=== PATIENT | female | born 1970 | race Caucasian/White ===

== ENCOUNTER → 2017-05-22 | Outpatient (CLI) | payer OTHER ==
--- NOTE | 2017-05-22 11:51 | RAD ---
HISTORY: Back pain. No history trauma given. Study: AP and lateral thoracic spine Comparison: None Findings: The pedicles are intact. Mild lateral spurring is present at several levels. Mild anterior spurring is present at several levels. Very minimal disc space narrowing is noted in the mid thoracic spine. No acute bony abnormalities are identified. IMPRESSION: 1. Thoracic spondylosis as described above. 2. No acute bony abnormalities are identified. Reported By:
--- NOTE | 2017-05-22 11:53 | RAD ---
HISTORY: Low back pain. No history trauma given. Study: AP and lateral lumbar spine Comparison: None Findings: Five lumbar type vertebra present. Wide laminectomy has been performed at L3 and L4 and what appears to be partial laminotomy at L5. Bilateral pedicle screws are present at L3, L4 and L5. Spinal stab ilization rods are present at these levels. Intervertebral disc fusion as been performed at L3/L4 an d L4/L5. Minimal disc space narrowing is noted at L5/S1 and L4/L5. A vascular stent is present. No acute bony abnormalities are identified. IMPRESSION: 1. Lumbar spondylosis and postoperative changes as described above. 2. Vascular stent. Reported By:
== END | disposition home or self-care (01) | DRG 816 ==
LOC: LAB 08:13
PROVIDERS: ATTEND Nurse Practitioner Family
DX: D75.89 Other specified diseases of blood and blood-forming organs (principal); M54.6 Pain in thoracic spine; M54.41 Lumbago with sciatica, right side; M47.894 Other spondylosis, thoracic region
CPT/HCPCS: 36415; 72072; 72100; 82164; 85652; 86140

== ENCOUNTER → 2017-07-12 | Outpatient (CLI) | payer OTHER ==
--- NOTE | 2017-07-12 12:12 | CT ---
Indication: Nasal congestion. Exam: CT scan of sinuses. Technique: Axial spiral images were obtained from the level above the frontal sinuses through the max illa and reconstructed at 2 mm intervals with coronal and sagittal multiplanar reconstructions. Autom ated does control was utilized. Findings: The frontal sinuses are clear. There is mild mucosal thickening throughout the ethmoid and maxillary sinuses. The IAC's are symmetric. The nasal septum is mildly deviated to the right. There h as been surgical resection of the anterior ethmoid air cells with resection of the ostiomeatal comple xes and maxillary antrostomies bilaterally. There are no air-fluid levels. The bones are intact. The visualized intracranial and orbital contents are unremarkable. The nasopharynx is unremarkable. Impression: Status post endoscopic sinus surgery with partial resection of the anterior ethmoid air cells and max illary antral windows bilaterally. 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 Mild nasal septal deviation to the right. Reported By:
== END | disposition home or self-care (01) | DRG 156 ==
LOC: RAD 10:57
PROVIDERS: ATTEND Nurse Practitioner Family
DX: R09.81 Nasal congestion (principal); J34.2 Deviated nasal septum; J32.0 Chronic maxillary sinusitis; J32.2 Chronic ethmoidal sinusitis
CPT/HCPCS: 70486

== ENCOUNTER → 2017-08-29 | Outpatient (CLI) | payer OTHER | LOC: LAB 09:23 | PROVIDERS: ATTEND Nurse Practitioner Family | DX: R25.2 Cramp and spasm (principal) | CPT/HCPCS: 36415; 83735 ==

== ENCOUNTER → 2017-09-07 | Outpatient (CLI) | payer OTHER ==
--- NOTE | 2017-09-07 08:43 | RAD ---
HISTORY: Chronic left knee pain Study: Left knee AP, lateral, oblique, sunrise Comparison: None Findings: There is no evidence for fracture, lytic, or blastic lesion. No joint erosion or joint effusion is id entified. No periarticular soft tissue abnormality is identified. IMPRESSION: No significant abnormality identified Reported By:
--- NOTE | 2017-09-07 08:46 | RAD ---
HISTORY: Chronic left foot pain. Study: Left foot: Three views Comparison: None Findings: Minimal metatarsus varus is noted. Early degenerative changes noted in the 1st metatarsal-phalangeal joint. There is a transverse fracture through the proximal metaphysis of the proximal phalanx of th e 4th digit. There appears to be early callus formation. Moderate calcaneal spurring is noted. Mil d enthesopathy is noted at the Achilles tendon insertion. IMPRESSION: 1. Degenerative change in left foot as described above. 2. Transverse fracture through the proximal metaphysis of the proximal phalanx of the 4th digit. Th is appears to be a subacute as there is mild callus formation present. Reported By:
== END | disposition home or self-care (01) | DRG 554 ==
LOC: RAD 08:08
PROVIDERS: ATTEND Orthopaedic Surgery
DX: M17.12 Unilateral primary osteoarthritis, left knee (principal); S92.912A Unspecified fracture of left toe(s), initial encounter for closed fracture; X58.XXXA Exposure to other specified factors, initial encounter
CPT/HCPCS: 73564; 73630